=== PATIENT | female | born 1955 | race Caucasian/White ===

== ENCOUNTER 2018-07-09 15:49 | Emergency (ER) | payer OTHER ==
--- OUTSIDE RECORDS SUMMARY | 2018-07-09 15:54 | XMS REPORT | Continuity of Care Document ---
:1955 External Reference #:[id number] Author Name Hipolito Edwards M.D. Address 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 Active Family History Date Family Member(s) Problem(s) Comments General Diabetes General High BP General Heart Disease General Brother, Grandparent Father Diabetes Father Heart Disease Father Cerebrovascular Accident Father High BP Mother Arthritis Mother Cancer Mother High BP Social History Type Date Description Comments Sex Unknown ETOH Use Denies alcohol use Tobacco Use Start: Unknown Patient has never smoked Smoking Status Reviewed: 07/02/18 Patient has never smoked Allergies, Adverse Reactions, Alerts Date Description Reaction Status Severity Comments 06/23/2014 NKDA Active 06/23/2014 Allergies Active Medications Medication Date Status Form Strength Qnty SIG Indications Ordering Provider Trimethoprim 07/02/ Active Solution 11782-5.1U 10ml 1 drop OU H10.013 Hipolito Sulfate/Polymyx 2018 nit/ML-% 4 times a Grace in B Sulfate day x 1 M.D. week Aspir-81 00/ Active Tablets DR 81mg once per Unknown 0000 day by mouth Centrum Silver / Active Tablets Unknown 0000 Pulmicort 0000/ Active Aerosol 180mcg/Act Unknown Flexhaler 0000 Proair HFA / Active Aerosol 108(90Base Unknown 0000 ) mcg/Act Desloratadine / Hx Clarinex Unknown 0000 - 2016 Pulmicort 00// Hx Aerosol 180mcg/Act Unknown Flexhaler 0000 - 2017 Immunizations Description No Information Available Vital Signs Date Vital Result Comment 02/07/2018 9:36am Intraocular Pressure Right Eye 16 mmHg Intraocular Pressure Left Eye 16 mmHg 08/30/2016 3:00pm Intraocular Pressure Right Eye 16 mmHg Intraocular Pressure Left Eye 16 mmHg 07/25/2015 11:26am Intraocular Pressure Right Eye 15 mmHg Intraocular Pressure Left Eye 15 mmHg 06/23/2014 1:36pm Intraocular Pressure Right Eye 16 mmHg Intraocular Pressure Left Eye 16 mmHg Results Description No Information Available Procedures Date Code Description Status 07/02/2018 53445 Eye Exam Est Intermediate Completed 02/07/2018 83022 Eye Exam Est Intermediate Completed 08/30/2016 07696 Eye Exam Est Intermediate Completed 07/25/2015 27050 Eye Exam Est Intermediate Completed 06/23/2014 91533 Eye Exam New Comprehensive Completed Encounters Description No Information Available Plan of Treatment 07/02/2018 - Hipolito Edwards M.D.H10.013 Acute follicular conjunctivitis, bilateralNew Medication:Trimethoprim Sulfate/Polymyxin B Sulfate 03688-0.1 Unit/ ML-% - 1 drop OU 4 times a day x 1 weekFollow up:prn 1 wk
[2018-07-09 16:06] VITALS: BP 146/89
--- NOTE | 2018-07-09 16:10 | UC ---
Ear Complaint HPI - HPI Summary HPI Summary: 63 yo female presents with sinus pain/pressure/congestion and left ear pain for the last 10 days. She has been taking mucinex OTC with no relief. Denies fever, chills, cough, SOB. - History of Current Complaint Chief Complaint: UCRespiratory Stated Complaint: EAR PAIN Time Seen by Provider: 07/09/18 16:10 Hx Obtained From: Patient Onset/Duration: Gradual Onset Severity Initially: Mild Severity Currently: Mild Pain Intensity: 3 Pain Scale Used: 0-10 Numeric - Allergies/Home Medications Allergies/Adverse Reactions: Allergies Allergy/AdvReac Type Severity Reaction Status Date / Time aluminum hydroxide Allergy Vomiting Verified 07/09/18 16:06 [From Maalox Maximum Strength] magnesium hydroxide Allergy Vomiting Verified 07/09/18 16:06 [From Maalox Maximum Strength] simethicone Allergy Vomiting Verified 07/09/18 16:06 [From Maalox Maximum Strength] Home Medications: Home Medications Aspirin [Aspir-Low] 1 tab PO DAILY 07/09/18 [History Confirmed 07/09/18] PMH/Surg Hx/FS Hx/Imm Hx Respiratory History: Asthma Psychological History: Anxiety - Surgical History Surgical History: Yes Surgery Procedure, Year, and Place: tonsilectomy. Right total hip. Bilateral total knee - Family History Known Family History: Positive: None - Social History Lives: With Family Alcohol Use: None Substance Use Type: None Smoking Status (MU): Never Smoked Tobacco Have You Smoked in the Last Year: No Household Exposure Type: Cigarettes Review of Systems All Other Systems Reviewed And Are Negative: Yes Constitutional: Positive: Negative Skin: Positive: Negative Eyes: Positive: Negative ENT: Positive: Nasal Discharge, Sinus Congestion, Sinus Pain/Tenderness Respiratory: Positive: Negative Cardiovascular: Positive: Negative Gastrointestinal: Positive: Negative Neurological: Positive: Negative Psychological: Positive: Negative Physical Exam - Summary Physical Exam Summary: GENERAL: NAD. WDWN. No pain distress. SKIN: No rashes, sores, lesions, or open wounds. HEENT: Head: AT/NC Eyes: EOM intact. Conjunctiva clear without inflammation or discharge. Ears: Hearing grossly normal. TMs intact, no bulging, erythema, or edema. Nose: Nasal mucosa mildly swollen and erythematous with yellow/ clear discharge. TTP maxillary and frontal sinus. Positive post nasal drip Throat: Posterior oropharynx without exudates, erythema, or tonsillar enlargement. Uvula midline. NECK: Supple. Nontender. No lymphadenopathy. CHEST: CTAB. No r/r/w. No accessory muscle use. Breathing comfortably and in no distress. CV: RRR. Without m/r/g. Pulses intact. NEURO: Alert. PSYCH: Age appropriate behavior. Triage Information Reviewed: Yes Vital Signs: Initial Vital Signs Temp 98.3 F 07/09/18 16:03 Pulse 81 07/09/18 16:03 Resp 18 07/09/18 16:03 BP 146/89 07/09/18 16:03 Pulse Ox 98 07/09/18 16:03 Vital Signs Reviewed: Yes Ear Complaint Course/Dx - Course Course Of Treatment: Sinusitis. Advised to try OTC flonase as well as her mucinex - Differential Dx/Diagnosis Provider Diagnosis: Sinusitis Discharge - Sign-Out/Discharge Documenting (check all that apply): Patient Departure All imaging exams completed and their final reports reviewed: No Studies - Discharge Plan Condition: Stable Disposition: HOME Prescriptions: Amoxicillin PO (*) [Amoxicillin 875 MG (*)] 875 mg PO BID #14 tab Patient Education Materials: Sinusitis (ED) Referrals: Jennifer Stephens MD [Primary Care Provider] - Additional Instructions: If you develop a fever, shortness of breath, chest pain, new or worsening symptoms - please call your PCP or go to the ED. Your blood pressure was high at todays visit. Please see your primary provider within 4 weeks for recheck and re-evaluation. Try over the counter nasonex OR flonase in addition to your other medications to relieve sinus pressure - Billing Disposition and Condition Condition: STABLE Disposition: Home
== END 2018-07-09 16:25 | disposition home or self-care (01) ==
LOC: UCEAST 15:49
DX: J32.9 Chronic sinusitis, unspecified (principal); Z88.8 Allergy status to other drugs, medicaments and biological substances; Z79.82 Long term (current) use of aspirin
CPT/HCPCS: 99212; G0463